=== PATIENT | female | born 1970 | race Caucasian/White ===

== ENCOUNTER 2023-09-24 13:59 | Outpatient (CLI) | payer BC, SELFPAY | END 2023-09-24 14:00 | disposition home or self-care (01) | PROVIDERS: Visit Provider Obstetrics & Gynecology | DX: R23.2 Flushing (principal); E66.9 Obesity, unspecified | CPT/HCPCS: 80053; 80061; 84443 ==

== ENCOUNTER 2023-12-03 15:25 | Outpatient (CLI) | payer BC, SELFPAY ==
[2023-12-03 19:01] LABS: Bacterial Vaginosis* DETECTED (No Detected); Candida glab/krus Not Detected (No Detected); Candida species Not Detected (No Detected); Trichomonas vaginalis Not Detected (No Detected)
== END 2023-12-03 15:26 | disposition home or self-care (01) ==
LOC: NFLDREF 15:31
PROVIDERS: Visit Provider Obstetrics & Gynecology
DX: N89.8 Other specified noninflammatory disorders of vagina (principal)
CPT/HCPCS: 81513; 87481; 87661

== ENCOUNTER 2023-12-16 12:37 | Outpatient (CLI) | payer BC, SELFPAY ==
--- NOTE | 2023-12-16 13:00 | CT_ITS ---
Patient: ADRIANNA DAMON Facility:?[facility] Patient ID:?[id number] Site Patient ID:?[id number]. Site :?1970 Study:?CT-Abdomen/Pelvis w/ 98cc [id number]/22/2024 1:08:24 PM Ordering Physician:Angela Chavez Final Report: Please note that all CT scans at this facility use dose modulation, iterative reconstruction, and/or weight-based dosing when appropriate to reduce radiation dose to as low as reasonably achievable. Dictated by Kaveh oHlm MD @ 12/17/2023 7:17:54 AM ----- ADDENDUM ----- INDICATION: Left adnexal a vaginal TECHNIQUE: Volumetric helical scanning of the abdomen and pelvis was performed with 98 cc Isovue 370 contrast material IV. Coronal and sagittal reconstructions were obtained. COMPARISON: None. FINDINGS: Postop changes of hysterectomy are demonstrated. In the posterior right pelvis is a nonspecific 5.6 x 5.0 x 5.0 cm cystic lesion with a wall measuring up to 3 mm in thickness as well as a 1 cm mural nodule inferiorly. This may be arising from the right ovary. A normal right ovary is not seen apart from this lesion. A normal left ovary is noted. No free fluid is apparent. The liver is normal in size, shape and attenuation. The bile ducts are within normal limits. The spleen, adrenal glands and pancreas are negative. The kidneys are unremarkable. There is no evidence of bowel obstruction or inflammation. No lymphadenopathy is evident. The lung bases are essentially clear, and heart size is normal. A calcified granuloma in the right lower lobe base is noted. IMPRESSION: 1. Nonspecific 5.6 x 5.0 x 5.0 cm cystic lesion in the posterior right pelvis with 3 mm wall thickness and 1 cm mural nodule inferiorly. This may be arising from the right ovary. Further evaluation with ultrasound recommended. 2. Post hysterectomy. Dictated by Kaveh Holm MD @ Dec 17 2023 7:18AM Signed by:?Kaveh Holm MD @12/17/2023 7:17:54 AM (Electronic Signature)
--- NOTE | 2023-12-16 14:00 | US_ITS ---
Patient: ADRIANNA DAMON Facility:?[facility] Patient ID:?[id number] Site Patient ID:?[id number]. Site :?1970 Study:?US-Pelvis TRANSABDOMINAL AND TRANSVAGINAL-12/16/2023 1:46:55 PM Ordering Physician:JOSE GRIFFIN Final Report: INDICATION: Left adnexal mass. Hysterectomy in 2021. TECHNIQUE: Transabdominal and transvaginal scanning was performed. Transvaginal scanning was performed to optimally evaluate the adnexa. COMPARISON: Today`s abdomen/pelvis CT FINDINGS: Postop changes of hysterectomy are again noted. In the right adnexa is a nonspecific 7.7 x 6.8 x 6.4 cm cystic lesion with wall measuring up to roughly 3 mm in thickness and a mural nodule inferiorly, as seen on CT. Neither ovary is identified with certainty. Soft tissue presumably representing postop scarring in the region of the cervix is noted in this cystic lesion is contiguous with this tissue. No free fluid is demonstrated. IMPRESSION: Nonspecific 7.7 x 6.8 x 6.4 cm cystic lesion with 3 mm wall and mural nodule inferiorly, as seen on CT. Postop changes of hysterectomy are again noted, and this cystic lesion is contiguous with presumed scarring in the region of the removed cervix. Question if this lesion is represents a chronic postop fluid collection. Further evaluation with MRI is recommended. Dictated by Kaveh Holm MD @ 12/17/2023 7:46:45 AM Signed by:?Kaveh Holm MD @12/17/2023 7:46:45 AM (Electronic Signature)
== END 2023-12-16 12:38 | disposition home or self-care (01) ==
LOC: CT 12:38
PROVIDERS: Visit Provider Obstetrics & Gynecology
DX: N83.8 Other noninflammatory disorders of ovary, fallopian tube and broad ligament (principal); N93.9 Abnormal uterine and vaginal bleeding, unspecified
CPT/HCPCS: 74177; 76830; 76856; 93976; Q9967

== ENCOUNTER 2023-12-17 11:01 | Outpatient (CLI) | payer BC, SELFPAY | END 2023-12-17 11:02 | disposition home or self-care (01) | PROVIDERS: Visit Provider Obstetrics & Gynecology | DX: N93.9 Abnormal uterine and vaginal bleeding, unspecified (principal) | CPT/HCPCS: 82378; 86301; 86304 ==

== ENCOUNTER 2023-12-24 14:15 | Outpatient (CLI) | payer BC, SELFPAY ==
--- NOTE | 2023-12-24 14:30 | MR_ITS ---
Patient: ADRIANNA DAMON Facility:?[facility] Patient ID:?[id number] Site Patient ID:?[id number]. Site :?1970 Study:?MRI-Pelvis W/ and W/O Cont 20 CC DOATERM-12/24/2023 3:52:08 PM Ordering Physician:DAVID ANDREW Final Report: INDICATION: Pelvic mass. History of total hysterectomy in 2021. COMPARISON: Pelvic ultrasound dated [address] scan of the abdomen and pelvis dated 16 December 2023. TECHNIQUE: Pelvic MRI with T1, T2, and postcontrast images. Findings : Hysterectomy. 5.0 x 4.5 x 4.2 cm right ovarian cystic lesion shows increased T1 signal and shading on the T2 weighted images. 1.3 cm cyst in the left ovary. 2.1 x 2.1 x 1.4 cm heterogeneous enhancing lesion located at the vaginal cuff and abutting the right ovarian cystic lesion. No other pelvic masses. No adenopathy. No other bony or soft tissue abnormalities identified. Impression : 1. 5.0 cm right ovarian endometrioma. 2. 2.1 cm enhancing lesion located at the vaginal cuff. This could represent a residual portion of cervix but can not exclude a neoplastic process. Recommend commission specialist consultation. Dictated by J Carlos Dietrich MD @ 12/25/2023 3:25:49 PM Signed by:?J Carlos Dietrich MD @12/25/2023 3:25:49 PM (Electronic Signature)
== END 2023-12-24 14:16 | disposition home or self-care (01) ==
LOC: MRI 14:15
PROVIDERS: Visit Provider Obstetrics & Gynecology
DX: R19.00 Intra-abdominal and pelvic swelling, mass and lump, unspecified site (principal); N80.121 Deep endometriosis of right ovary; N83.8 Other noninflammatory disorders of ovary, fallopian tube and broad ligament
CPT/HCPCS: 72197; A9575

== ENCOUNTER 2024-01-07 17:24 | Emergency (ER) | payer BC, SELFPAY ==
[2024-01-07 17:44] VITALS: BP 136/87; PULSE 71; RESP 18; TEMP 37; O2SAT 98; BMI 34.2
--- NOTE | 2024-01-07 19:00 | ED.GENADULT ---
HPI - General Adult General Date Seen: 01/07/24 Chief complaint: Vaginal Bleeding Stated complaint: vaginal bleeding Time Seen by Provider: 01/07/24 18:46 Source: patient, RN notes reviewed and old records reviewed Mode of arrival: ambulatory Limitations: no limitations History of Present Illness HPI narrative: Patient is a 53-year-old woman who is status post oophorectomy and bilateral salpingectomy, ovaries retained, 2021 at [place]. Starting about 6-12 months ago she began to have some spotting/light bleeding after intercourse, sometimes spontaneously. She was seen in October by Gynecology, followed up with them in November. Was noted to have on pelvic exam a small smooth lesion on the side of the vaginal wall which was friable and felt to be obvious source for her bleeding. She also had an adnexal mass on exam, went on to have evaluation with CT, ultrasound as well as MRI of the pelvis. She tells me that she has an appointment next week to discuss all this with Dr. Chavez as the plan is to remove this vaginal lesion in the OR. Today she had some bright red blood per vagina, she says she passed 3 small clots as well, perhaps the size of strawberries. She is wearing a panty liner, and did bleed through the panty liner, but has not had any other pads. She called the nurse triage line and was told to come in. Bleeding has largely subsided. She does not have any significant abdominal pain. She has been feeling somewhat fatigued, which she had attributed to daylight savings, otherwise has felt fine. Related Data Previous Rx's Medication Instructions Recorded estradiol 0.0375 mg/24 hr 1 patch transdermal 2XW #8 ea 09/24/23 semiweekly transdermal patch Allergies Allergy/AdvReac Type Severity Reaction Status Date / Time No Known Drug Allergies Allergy Verified 01/07/24 17:55 Review of Systems Status of ROS: Reports: 10 or more systems reviewed and unremarkable except as noted in History and below [facility] Medical History Dysmenorrhea ?N94.6 - Dysmenorrhea, unspecified (ICD-10) Menorrhagia ?N92.0 - Excessive and frequent menstruation with regular cycle (ICD-10) Surgical History History of total abdominal hysterectomy ?Z90.710 - Acquired absence of both cervix and uterus (ICD-10) Exam Narrative: Exam Narrative: Vital signs as noted above. In general, an alert, well-appearing patient. Head: Normocephalic, atraumatic. Eyes: Pupils are equal reactive. Extraocular movements are full. Conjunctivae are normal. Neurologic: Patient is alert and oriented to person and place. Speech is fluent. Face is symmetric. Moves all extremities equally. Affect: Normal. Skin: Warm and dry. Well perfused. Const: Vital Signs, click to edit/add: Vital Signs - 24 hr 01/07/24 17:44 Temperature 98.6 F Pulse Rate [Pulse Oximeter] 71 Respiratory Rate 18 Blood Pressure [Ri ght Upper Arm] 136/87 Pulse Oximetry 98 Oxygen Delivery Me thod Room Air Course Course ED Course: I reviewed all the patient's records, it appears that the source of this bleeding is known and there is a plan in place. I do not think based on what she is telling me that there is any indication to move that surgery up. She is having a fairly minimal amount of bleeding. Did discuss with her we will just check hemoglobin and make sure that that looks okay, then I would recommend follow-up with gynecology next week as planned. 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 If she is bleeding through more than a pad an hour for more than 2 hours, return to the emergency department. Hemoglobin is 14.2. Patient is reassured by this. Follow-up as outlined above. Vital Signs Vital signs: Initial Vital Signs Temperature 98.6 F 01/07/24 17:44 Temperature Source Temporal Artery Scan 01/07/24 17:44 Pulse Rate 71 01/07/24 17:44 Respiratory Rate 18 01/07/24 17:44 Blood Pressure 136/87 01/07/24 17:44 Blood Pressure Mean 103 01/07/24 17:44 Blood Pressure Position Sitting 01/07/24 17:44 Pulse Oximetry 98 01/07/24 17:44 Oxygen Delivery Method Room Air 01/07/24 17:44 Vital Signs Temperature 98.6 F 01/07/24 17:44 Pulse Rate 71 01/07/24 17:44 Respiratory Rate 18 01/07/24 17:44 Blood Pressure 136/87 01/07/24 17:44 Pulse Oximetry 98 01/07/24 17:44 Oxygen Delivery Method Room Air 01/07/24 17:44 Temperature 98.6 F 01/07/24 17:44 Pulse Rate 71 01/07/24 17:44 Respiratory Rate 18 01/07/24 17:44 Blood Pressure 136/87 01/07/24 17:44 Pulse Oximetry 98 01/07/24 17:44 Oxygen Delivery Method Room Air 01/07/24 17:44 Medical Decision Making Lab Data Labs: Lab Results 01/07/24 Range/Units 19:10 WBC 7.82 (4.50-11.00) K/uL RBC 4.75 (4.00-5.20) m/uL Hgb 14.2 (12.0-16.0) gm/dL Hct 42.0 (33.0-51.0) % MCV 88 (80-100) fL MCH 30 (26-34) pg MCHC 34 (32-36) gm/dL RDW Coeff of Walker 12.3 (11.5-15.5) % Plt Count 277 (140-440) K/uL Neut % (Auto) 50.1 (42.0-72.0) % Lymph % (Auto) 38.2 (20-44) % Union % (Auto) 9.8 (0.0-11.0) % Eos % (Auto) 1.4 (0.0-7.0) % Baso % (Auto) 0.5 (0.0-3.0) % Neut # (Auto) 3.91 (1.7-7.0) K/uL Lymph # (Auto) 2.99 H (0.90-2.90) K/uL Union # (Auto) 0.80 (0.00-0.90) K/UL Eos # (Auto) 0.11 (0.00-0.50) K/uL Baso # (Auto) 0.04 (0.00-0.30) K/uL Abs Immat Gran (auto) 0.00 (0.00-0.30) K/uL Imm/Tot Granulo (auto) 0.0 % Discharge Plan Discharge Clinical Impression: Vaginal bleeding Patient Disposition: Home, Self-Care Condition: Stable Additional Instructions: Follow-up next week with Dr. Chavez as planned. If needed, use a bulky or pad. If your bleeding through a regular pad every hour for more than 2 hours in a row, you should come back to the ER. Anticipate that you will continue to have bleeding on and off until this lesion is removed. Prescriptions: No Action estradiol 0.0375 mg/24 hr patch semiweekly 1 patch transdermal 2XW Qty: 8 4RF Rx Instructions: apply 1 patch for 3 days alternating with 1 patch for 4 days each week for 3 wks per 4-wk cycle Follow Up/Referrals: Provider,Not a Local [Referring] - Stand Alone Forms: [employer] Info Instructions
[2024-01-07 19:14] LABS: Basophils Absolute Auto 0.04 K/uL (0.00-0.30); Basophils Percent Auto 0.5 % (0.0-3.0); Eosinophils Absolute Auto 0.11 K/uL (0.00-0.50); Eosinophils Percent Auto 1.4 % (0.0-7.0); Hemoglobin* 14.2 gm/dL (12.0-16.0); Lymphocytes Absolute Auto 2.99 K/uL (0.90-2.90); Lymphocytes Percent Auto 38.2 % (20-44); Mean Corpuscular HGB Conc 34 gm/dL (32-36); Mean Corpuscular Hemoglobin 30 pg (26-34); Mean Corpuscular Volume 88 fL (80-100); Monocytes Percent Auto 9.8 % (0.0-11.0); Neutrophils Absolute Auto 3.91 K/uL (1.7-7.0); Neutrophils Percent Auto 50.1 % (42.0-72.0); Platelet Count* 277 K/uL (140-440); RDW Coefficient of Variation % 12.3 % (11.5-15.5); Red Blood Count 4.75 m/uL (4.00-5.20); White Blood Count* 7.82 K/uL (4.50-11.00)
[2024-01-07 19:21] LABS: Slide Review Reflex No
== END 2024-01-07 19:38 | disposition home or self-care (01) ==
PROVIDERS: Emergency Provider Emergency Medicine; PCP Obstetrics & Gynecology
DX: N93.9 Abnormal uterine and vaginal bleeding, unspecified (principal)
CPT/HCPCS: 36415; 85025; 99283; 99284

== ENCOUNTER 2024-01-21 10:40 | Outpatient (CLI) | payer BC, SELFPAY ==
--- NOTE | 2024-01-21 10:45 | MM_ITS ---
Patient: ADRIANNA DAMON Facility:?[facility] Patient ID:?[id number] Site Patient ID:?[id number]. Site :?1970 Study:?XRay-Breast Bilateral 3D W/CAD-01/21/2024 1:46:06 PM Ordering Physician:Humaira Final Report: BILATERAL SCREENING MAMMOGRAM WITH COMPUTER-AIDED DETECTION AND TOMOSYNTHESIS TECHNIQUE: CC and MLO views were obtained. These mammographic images have been obtained using full-field digital technique. These mammographic images were interpreted with the benefit of computer-aided detection. Breast Tomosynthesis was used in this interpretation. COMPARISON FILM: 08/21/21, 01/13/18, 06/15/14. FINDINGS: There are scattered areas of fibroglandular density IMPRESSION: There is no radiographic evidence for malignancy. ASSESSMENT: BI-RADS Category 1: Negative RECOMMENDATION: Routine screening mammogram in 1 year. A lay language report of this examination will be provided to the patient. Thomas Lora M.D. Diagnostic Radiologist [email or web address] Transcribed: 12:08 p.mAdrian phillips/Dictated by: Thomas Lora MD @ 01/31/2024 10:29:00 AM Signed by:?Thomas Lora MD @01/31/2024 12:12:23 PM (Electronic Signature)
== END 2024-01-21 10:41 | disposition home or self-care (01) ==
LOC: MAMMO 10:40
PROVIDERS: PCP Obstetrics & Gynecology; Visit Provider Obstetrics & Gynecology
DX: Z12.31 Encounter for screening mammogram for malignant neoplasm of breast (principal)
CPT/HCPCS: 77063; 77067

== ENCOUNTER 2024-02-21 15:05 | Outpatient (CLI) | payer BC, SELFPAY ==
--- NOTE | 2024-02-21 15:30 | MR_ITS ---
Patient: ADRIANNA DAMON Facility:?[facility] Patient ID:?[id number] Site Patient ID:?[id number]. Site :?1970 Study:?MRI-Pelvis WO/W DOTAREM 18ML-02/21/2024 5:33:56 PM Ordering Physician:MANI RILEY Final Report: INDICATION: Right ovarian mass. COMPARISON: Pelvic MRI dated [address] scan of the abdomen and pelvis dated 16 December 2023. TECHNIQUE: Pelvic MRI with T1, T2, and postcontrast images. Intravenous gadolinium administered. Findings : Hysterectomy. 5.2 x 5.0 x 4.9 cm right ovarian cystic lesion shows increased T1 signal and shading on T2 weighted images, previously 5.0 x 4.5 x 4.2 cm. Normal appearance of the left ovary. 2.1 x 2.1 x 1.4 cm heterogeneous enhancing lesion located at the vaginal cuff is unchanged. No other pelvic masses. No adenopathy. No other bony or soft tissue abnormalities identified. Impression : 1. Right ovarian endometrioma is slightly increased in size. 2. Heterogeneous enhancing mass at the vaginal cuff is unchanged and could represent a residual portion of the cervix but can not exclude a neoplastic process. Dictated by J Carlos Dietrich MD @ 02/22/2024 4:25:53 PM Signed by:?J Carlos Dietrich MD @02/22/2024 4:25:53 PM (Electronic Signature)
== END 2024-02-21 15:06 | disposition home or self-care (01) ==
LOC: MRI 15:06
PROVIDERS: PCP Nurse Practitioner Family; Visit Provider Obstetrics & Gynecology Gynecologic Oncology
DX: N80.101 Endometriosis of right ovary, unspecified depth (principal); R19.09 Other intra-abdominal and pelvic swelling, mass and lump; R93.89 Abnormal findings on diagnostic imaging of other specified body structures; N84.2 Polyp of vagina
CPT/HCPCS: 72197; A9575

== ENCOUNTER 2024-06-28 16:13 | Outpatient (CLI) | payer BC, SELFPAY ==
--- NOTE | 2024-06-28 16:30 | CRLHL7_ITS ---
For Patients: As a result of the Century Cures Act, medical imaging exams and procedure reports are released immediately into your electronic medical record. You may view this report before your referring provider. If you have questions, please contact your health care provider. INDICATION: Abdominal and pelvic swelling, mass. Follow up right ovarian cyst. TECHNIQUE: Transabdominal and transvaginal scanning was performed. Transvaginal scanning was performed to optimally evaluate the endometrium and adnexa. Ovarian blood flow was evaluated with color-flow and pulsed Doppler. COMPARISON: Pelvis MRI of 02/21/2024 and pelvic ultrasound of 12/16/1999 FINDINGS: Postop changes of hysterectomy again demonstrated. A 3.9 x 2.1 x 1.9 cm cystic mass is present in the region of the vaginal cuff and presumably corresponds to the 2.1 x 2.1 x 1.4 cm abnormality noted MRI. A 4.5 x 4.1 x 4.0 cm complex right ovarian cyst is again demonstrated and on the previous ultrasound this was measured at 7.7 x 6.8 x 6.4 cm. Apart from the apparent decrease in size, this cyst appears unchanged from the prior ultrasound. The right ovary is measured at 5.5 x 4.7 x 4.7 cm and the left 2.5 x 1.5 x 1.4 cm. No free fluid is evident. IMPRESSION: 1. Post hysterectomy and 3.9 x 2.11.9 cm cystic mass region of the vaginal cuff, presumably corresponding to the 2.1 x 2.1 x 1.4 cm abnormality noted at this site on MRI. Neoplasm must be considered. Repeat MRI recommended. 2. 4.5 x 4.1 x 4.0 cm complex right ovarian cyst, decreased from 7.7 x 6.8 x 6.4 cm on previous ultrasound. Dictated by Kaveh Holm MD @ 06/29/2024 6:09:21 AM (Electronically Signed)
== END 2024-06-28 16:14 | disposition home or self-care (01) ==
PROVIDERS: PCP Nurse Practitioner Family; Visit Provider Obstetrics & Gynecology
DX: R19.00 Intra-abdominal and pelvic swelling, mass and lump, unspecified site (principal); N83.201 Unspecified ovarian cyst, right side
CPT/HCPCS: 76830; 76856

== ENCOUNTER 2024-07-19 08:47 | Day surgery (SDC) | payer BC, SELFPAY ==
[2024-07-19] MEDS: LACTATED RINGERS 1000 ML 1,000 ML 100 ML IV (08:55)
[2024-07-19] MEDS: SODIUM CHLORIDE 0.9 % (FLUSH) 10 ML SYRINGE IVF (09:00)
[2024-07-19 09:04] VITALS: BP 131/80; PULSE 56; RESP 16; TEMP 36.6; O2SAT 97; BMI 34.4
[2024-07-19 09:25] LABS: Hemoglobin* 15.3 gm/dL (12.0-16.0)
[2024-07-19 09:38] LABS: Creatinine* 0.8 mg/dL (0.5-1.5); Est. Creatinine Clearance* 67.27; Estimated Glomerular Filt Rate 88 ml/min
--- NOTE | 2024-07-19 10:28 | W.ANESCHARGE ---
Anesthesia Charges Start Date/Time Anesthesia Start Date: 07/19/24 Anesthesia Start Time: 10:31 Stop Date/Time Anesthesia Stop Date: 07/19/24 Anesthesia Stop Time: 11:23
--- NOTE | 2024-07-19 10:31 | W.PM.H&PU ---
History & Physical Update History & Physical Update H&P Reviewed and patient assessed: No changes noted
[2024-07-19 11:20] VITALS: BP 112/88; PULSE 64; RESP 16; TEMP 36.4; O2SAT 98
--- NOTE | 2024-07-19 11:23 | W.ANESCHARGE ---
Anesthesia Charges Start Date/Time Anesthesia Start Date: 07/19/24 Anesthesia Start Time: 10:31 Stop Date/Time Anesthesia Stop Date: 07/19/24 Anesthesia Stop Time: 11:23
[2024-07-19 11:30] VITALS: BP 129/84; PULSE 49; RESP 16; O2SAT 98
[2024-07-19 11:45] VITALS: BP 143/88; PULSE 48; RESP 16; O2SAT 98
[2024-07-19 12:00] VITALS: BP 130/80; PULSE 56; RESP 16; O2SAT 98
[2024-07-19 12:30] VITALS: BP 135/82; PULSE 62; RESP 16; O2SAT 98
--- NOTE | 2024-07-19 13:57 | P.GYNPRC_ITS ---
Procedure Note Time Seen by Provider: 11:00 Date of procedure: 07/19/24 Will [facility] bill your pro fee for this procedure?: Yes Pre-op diagnosis: 1. Vaginal polyp 2. Pelvic mass 3. Right endometrioma Post-op diagnosis: 1. Vaginal polyp 2. Pelvic mass 3. Right endometrioma Procedure: 1. Exam under anesthesia 2. Vaginal polyp resection 3. Vaginal laceration/cuff repair Anesthesia: MAC and local Complications: None Surgeon: Zara Chavez MD Estimated blood loss (mL): 10 IV fluids (mL): 750 Urine Output (mL): 250 Pathology: specimen obtained, sent to pathology (Vaginal polyp ) Condition: stable Disposition: PACU Findings: Pelvic exam: Mons normal, clitoris normal, urethral meatus normal. Labia minora and majora normal in appearance bilaterally. Perineum and anus normal appearance. Vaginal introitus normal appearance. Vagina pink and well rugated with increased white discharge. Approximately 5-6 cm into the vagina on the right lower portion of the vaginal wall is a red, round, relatively smooth, growth of tissue approximately 1.5cm in diameter. The base of the vaginal polyp at the top of the vaginal cuff is a hard possibly calcified mass. Bimanual exam reveals no palpable adnexal masses or tenderness. Rectal exam was performed at the end of the case. No masses, defect, or suture palpated rectally. Rectovaginal septum is smooth and mobile without masses or lesions. Procedure Description: The patient was taken to the operating room where MAC was administered. She was prepared and draped in normal sterile fashion in the dorsal lithotomy position in yellow fin stirrups, taking care to avoid lower extremity hyperextension, hyperflexion or compression. A surgical time-out was performed with the entire operative staff per protocol. Perioperative antibiotics were given and pneumoboots were placed and activated. EUA revealed the above findings. Bladder was drained with a straight cath A speculum was placed in the patient's vagina. Vaginal polyp removed with ring forceps and Allis forceps in its entirety. The defect was reapproximated with 2- 0 Vicryl in a continuous locking fashion. Excellent hemostasis was noted. All instruments were removed. Rectal exam performed. Debrief performed per protocol and specimen reviewed. Specimen was sent to pathology. The patient tolerated the procedure well. Sponge, lap and needle counts were correct x 2. The patient was taken to the recovery room in stable condition.
== END 2024-07-19 13:00 | disposition home or self-care (01) ==
PROVIDERS: PCP Nurse Practitioner Family; Visit Provider Obstetrics & Gynecology
PROC: 0UQG0ZZ Repair Vagina, Open Approach (ICD-10-PCS; CPT 57135; principal; 2024-07-19 10:15)
DX: N84.2 Polyp of vagina (principal); Z90.710 Acquired absence of both cervix and uterus; N80.121 Deep endometriosis of right ovary; N93.0 Postcoital and contact bleeding
CPT/HCPCS: 57135; 00940; 36415; 82565; 85018; 86850; 86900; 86901; 88305; J1100; J1885; J2405; J2704; J3010; J7120

== ENCOUNTER 2024-08-11 12:40 | Outpatient (CLI) | payer BC, SELFPAY ==
--- NOTE | 2024-08-11 13:00 | CRLHL7_ITS ---
For Patients: As a result of the Cures Act, medical imaging exams and procedure reports are released immediately into your electronic medical record. You may view this report before your referring provider. If you have questions, please contact your health care provider. INDICATION: Endometriosis. TECHNIQUE: Pelvic MRI with T1 and T2, and postcontrast images. Intravenous gadolinium administered. Comparison : Pelvic MRIs dated 21 February 2024 and 24 December 2023. Findings : Hysterectomy. 4.1 x 4.0 x 4.0 cm right ovarian cystic lesion shows increased T1 signal is decreased in size, previously 5.2 x 5.0 x 4.9 cm. 1.3 cm nodule in the lower portion of the right ovarian cystic lesion is unchanged. 2.1 x 1.5 cm heterogeneous enhancing nodule along the vaginal cuff is unchanged. Normal appearance of left ovary. No other pelvic masses. No adenopathy. No other bony or soft tissue abnormalities identified. Impression : 1. 4.1 cm right ovarian endometrioma is decreased in size. 2. Heterogeneous mass at the vaginal cuff is unchanged. Dictated by J Carlos Dietrich MD @ 08/14/2024 10:29:19 AM (Electronically Signed)
== END 2024-08-11 12:41 | disposition home or self-care (01) ==
LOC: MRI 12:41
PROVIDERS: PCP Nurse Practitioner Family; Visit Provider Obstetrics & Gynecology
DX: N80.129 Deep endometriosis of ovary, unspecified ovary (principal); N83.201 Unspecified ovarian cyst, right side; R19.00 Intra-abdominal and pelvic swelling, mass and lump, unspecified site
CPT/HCPCS: 72197; A9575

== ENCOUNTER 2025-04-05 15:04 | Outpatient (CLI) | payer BC, SELFPAY ==
--- NOTE | 2025-04-05 15:20 | CRLHL7_ITS ---
For Patients: As a result of the Century Cures Act, medical imaging exams and procedure reports are released immediately into your electronic medical record. You may view this report before your referring provider. If you have questions, please contact your health care provider. INDICATION: BILATERAL SCREENING MAMMOGRAM, ASYMPTOMATIC 55 Y/O FEMALE COMPARISON: 01/21/2024, 08/21/2021, 01/13/2018 TECHNIQUE: Digital mammogram in CC and MLO projections including computer-aided detection (CAD) and tomosynthesis. BREAST COMPOSITION: There are scattered areas of fibroglandular density. FINDINGS: No suspicious findings. ASSESSMENT: BI-RADS 1 Negative RECOMMENDATION: Annual screening mammogram. A lay language report of this examination will be provided to the patient. Dictated by: Thomas Lora MD @ 04/06/2025 09:14:59 (Electronically Signed)
== END 2025-04-05 15:05 | disposition home or self-care (01) ==
PROVIDERS: PCP Nurse Practitioner Family; Visit Provider Nurse Practitioner Family
DX: Z12.31 Encounter for screening mammogram for malignant neoplasm of breast (principal)
CPT/HCPCS: 77063; 77067